=== PATIENT | male | born 1990 | race Caucasian/White ===

== ENCOUNTER 2018-06-12 20:38 | Emergency (ER) | payer MEDICAID ==
[~2018-06-12] VITALS: Ht 180.3 cm; Wt 68.0 kg
[2018-06-12 21:49] LABS: ALBUMIN 4.5 g/dL (3.4-5.0); ANION GAP 10 mmol/L (5-15); CALCIUM 10.6 mg/dL (8.5-10.1); CHLORIDE 109 mmol/L (98-107); CREATININE 1.23 mg/dL (0.7-1.3)
[2018-06-12 21:52] LABS: TROPONIN I < 0.015 ng/mL (0.000-0.045)
[2018-06-12 22:12] LABS: BASOPHILS # (AUTO) 0.03 x10^3/uL (0-0.1); BASOPHILS % (AUTO) 0 % (0-1); EOSINOPHILS # (AUTO) 0.04 x10^3/uL (0-0.4); EOSINOPHILS % (AUTO) 1 % (1-7); LYMPHOCYTES # (AUTO) 1.13 x10^3/uL (1-3.4); LYMPHOCYTES % (AUTO) 19 % (22-44); MD SCAN; MEAN CORPUSCULAR HEMOGLOBIN 31.3 pg (27.5-34.5); MEAN CORPUSCULAR HGB CONC 34.6 g/dL (33.2-36.2); MEAN CORPUSCULAR VOLUME 90.4 fL (81-97); MEAN PLATELET VOLUME 11.4 fL (7.4-10.4); MONOCYTES # (AUTO) 0.41 x10^3/uL (0.2-0.8); MONOCYTES % (AUTO) 7 % (2-9); NEUTROPHILS # (AUTO) 4.41 x10^3/uL (1.8-6.8); NEUTROPHILS % (AUTO) 73 % (42-75); PLATELET COUNT 200 x10^3/uL (130-400); RED BLOOD COUNT 5.97 x10^6/uL (4.38-5.82); RED CELL DISTRIBUTION WIDTH 13.2 % (9.4-14.8)
[2018-06-12 22:34] VITALS: BP 132/84
== END 2018-06-12 22:57 | disposition home or self-care (01) ==
LOC: ED 22:51
DX: F14.129 Cocaine abuse with intoxication, unspecified (principal); F41.9 Anxiety disorder, unspecified; R07.2 Precordial pain
CPT/HCPCS: 36415; 71045; 80048; 82040; 84484; 85025; 93005; 99285

== ENCOUNTER 2018-09-13 00:29 | Emergency (ER) | payer MEDICAID ==
[~2018-09-13] VITALS: Ht 180.3 cm; Wt 68.4 kg
--- NOTE | 2018-09-13 02:21 | NUR ---
Patient given discharge instructions and they have confirmed that they understand the instructions. Patient ambulatory with steady gait.
[2018-09-13 02:24] VITALS: BP 135/78
== END 2018-09-13 02:26 | disposition home or self-care (01) ==
LOC: ED 02:01
DX: S70.02XA Contusion of left hip, initial encounter (principal); W00.0XXA Fall on same level due to ice and snow, initial encounter; Y93.89 Activity, other specified; Y92.89 Other specified places as the place of occurrence of the external cause; Y99.8 Other external cause status
CPT/HCPCS: 99283

== ENCOUNTER 2018-12-13 14:14 | Emergency (ER) | payer MEDICAID ==
[~2018-12-13] VITALS: Ht 180.3 cm; Wt 64.6 kg
[2018-12-13 14:35] VITALS: BP 128/83
[2018-12-13] MEDS ORDERED: IBUPROFEN 200 MG TABLET ONE (15:27)
[2018-12-13] MEDS ORDERED: IBUPROFEN 800 MG TABLET PO ONE (15:30)
== END 2018-12-13 15:40 | disposition home or self-care (01) ==
LOC: ED 15:30
DX: M25.552 Pain in left hip (principal)
CPT/HCPCS: 99283

== ENCOUNTER 2019-07-10 19:12 | Emergency (ER) | payer MEDICAID ==
[~2019-07-10] VITALS: Ht 180.3 cm; Wt 71.0 kg
[2019-07-10 19:26] VITALS: BP 144/71
--- NOTE | 2019-07-10 19:55 | NUR ---
FROM LOBBY TO ROOM AT THIS TIME
[2019-07-10] MEDS ORDERED: CYCLOBENZAPRINE 10 MG TABLET PO STA (20:01)
[2019-07-10] MEDS ORDERED: IBUPROFEN 200 MG TABLET ONE (20:04)
[2019-07-10] MEDS ORDERED: CYCLOBENZAPRINE 10 MG TABLET ONE (20:04)
[2019-07-10] MEDS ORDERED: IBUPROFEN 200 MG TABLET PO ONE (20:30)
[2019-07-10] MEDS ORDERED: CYCLOBENZAPRINE 10 MG TABLET PO ONE (20:30)
== END 2019-07-10 21:07 | disposition home or self-care (01) ==
LOC: ED 20:00
DX: S76.012A Strain of muscle, fascia and tendon of left hip, initial encounter (principal); M79.652 Pain in left thigh; Z87.81 Personal history of (healed) traumatic fracture; X58.XXXA Exposure to other specified factors, initial encounter; Y93.89 Activity, other specified; Y92.89 Other specified places as the place of occurrence of the external cause; Y99.8 Other external cause status
CPT/HCPCS: 99283